=== PATIENT | male | born 1940 | race Hispanic/Latino ===

== ENCOUNTER 2017-07-15 11:50 | Day surgery (SDC) | payer MEDICARE ==
[2017-07-15] MEDS ORDERED: GARAMYCIN 80 MG in NACL 0.9% 100 ML IV SCH (12:30)
[2017-07-15] MEDS ORDERED: XYLOCAINE MPF 2% ONE (13:00)
[2017-07-15] MEDS ORDERED: GARAMYCIN/NS 80 MG/100 ML 100 ML IV NR (13:00)
[2017-07-15] MEDS ORDERED: NACL 0.9% 1000 ML 1,000 ML IV SCH (13:00)
[2017-07-15] MEDS ORDERED: NEO SYNEPHRINE/NS Syringe(OR USE) IV ONE (13:00)
[2017-07-15] MEDS ORDERED: CLEOCIN 600 MG/50 mL 600 MG/50 ML BAG IV NR (14:00)
[2017-07-15] MEDS ORDERED: TRIPLE ANTIBIOTIC TP ONE ×2 (14:23→15:58)
--- NOTE | 2017-07-15 14:53 | Anesthesia Consultation ---
Anesthesia Consult and Med Hx Date of service: 07/15/17 - Airway Anesthetic Teeth Evaluation: Poor (only 5-6 teeth in mouth) ROM Head & Neck: Inadequate Mental/Hyoid Distance: Adequate Mallampati Class: Class III Intubation Access Assessment: Difficult - Pulmonary Exam CTA: Yes - Cardiac Exam Cardiac Exam: RRR - Pre-Operative Health Status ASA Pre-Surgery Classification: ASA4 Proposed Anesthetic Plan: MAC - Pulmonary Hx Smoking: No SOB: Yes (with exacerbation of CHF) Hx Sleep Apnea: No - Cardiovascular System Hx Hypertension: Yes Hx Coronary Artery Disease: Yes (CHF) Hx Cardia Arrhythmia: Yes (Afib) - Central Nervous System Hx Neuromuscular Disorder: No Hx Psychiatric Problems: Yes (refuses to eat) - Gastrointestinal Hx Gastroesophageal Reflux Disease: Yes - Endocrine Hx Renal Disease: Yes (CKD) Hx Insulin Dependent Diabetes: Yes Hx Hypothyroidism: Yes - Hematic Hx Anemia: No Hx Sickle Cell Disease: No - Other Systems Hx Alcohol Use: No Hx Substance Use: No Hx Cancer: No Hx Obesity: No
--- NOTE | 2017-07-15 14:54 | Anesthesia Day of Surgery ---
Anesthesia Day of Surgery - Day of Surgery Patient Examined: Yes Patient H&P Reviewed: Yes Patient is NPO: Yes
[2017-07-15] MEDS ORDERED: VERSED ONE (15:31)
[2017-07-15] MEDS ORDERED: SUBLIMAZE ONE (15:31)
[2017-07-15] MEDS ORDERED: DIPRIVAN 10 MG/ML IV ONE ×2 (15:31→15:32)
--- NOTE | 2017-07-15 15:37 | Operative Report ---
Operative Report Operative Report: Operative Report: Date of procedure: 07/15/2017 Procedure: Esophagogastroduodenoscopy with percutaneous endoscopic gastrostomy tube placement Attending physician: Roberto Orellana MD Medical Radiation Tech: Roberto Orellana MD Indication: Patient is an 76-year-old male who presented with a history of dementia altered mental status poor oral intake and weight loss. Patient is moderately malnourished. An upper endoscopy is done to place a percutaneous endoscopic gastrostomy tube for enteral feeding and administration of medications. Consent: Informed consent was obtained after advising the patient and family regarding nature of this procedure, its indications, potential benefits as well as possible complications including but not limited to bleeding perforation and adverse reaction to medication, infection as well as other cardiopulmonary complications. An informed written and verbal consent was then obtained after due opportunity was provided for questions and answers. Monitoring: Patient was monitored continuously with pulse oximetry and electrocardiographic recordings as well as blood pressure recordings. Vital signs remained stable throughout this procedure with no untoward events. Preoperative assessment: Patient was assessed immediately prior to this procedure for capacity to tolerate monitored anesthesia care and moderate sedation as well as general anesthesia. Patient's ASA classification is 3, Mallampati class is 2, Hyomental distance is 3. Instrument: Neovasc video endoscope. 20 Brazilian percutaneous endoscopic gastrostomy tube kit Medications: Propofol given intravenously in divided doses. For details please refer to anesthesia records. Clindamycin 600 mg and Gentamycin 80 mg given intravenously immediately prior to beginning of procedure 1% lidocaine for local infiltration of the skin. Description of procedure: Patient was placed in a supine position after achieving sedation, the endoscope was introduced into the esophagus under direct vision. It was then advanced beyond the esophagus into the stomach and then beyond the stomach into the duodenum and to the second portion of the duodenum. It was subsequently withdrawn with careful inspection of all mucosal surfaces with the following findings. Subsequently, a precise location for the placement of the percutaneous endoscopic gastrostomy tube was identified using direct light transillumination and one-to-one finger indentation. Following this, a 20 Brazilian percutaneous endoscopic gastrostomy tube was successfully placed using the Ponsky pull-through method. The following endoscopic findings were noted. Findings: Esophagus was normal. There was retained fluid in the gastric fundus and cardia which was suctioned off . A 20 Brazilian percutaneous endoscopic gastrostomy tube was successfully placed. The duodenum was normal to the second portion. Impression: Esophagogastroduodenoscopy with successful placement of a 20 Brazilian percutaneous endoscopic gastrostomy tube. Plan: The tube site is currently at 3.2cm. It should be cleaned daily with Betadine and peroxide. Triple Antibiotic should be applied daily to the site with dry gauze dressing a for at least 2-3 weeks. The tube site should be carefully inspected daily for any redness or discharge. The tube should be flushed with 100 mL of water every 6 hours. The tube should also be flushed additionally after administration medications or after completing a feeding session. Tube may be used for enteral feeding after 6 hours. The tube however may be used immediately for administration of medications. If the tube is accidentally dislodged, a bedspread folder should be notified immediately. After 6 hours, the tube may be used for enteral feeding. The advice however and recommendation is to begin tube feeding at a slow rate of 30 mL per hour and gradually increase as may be instructed after 8 hours. Residuals from the feeding tube should be checked every 3 hours for at least 24-36 hours. If patient tolerates feeding, his feeding volume should be optimized as may advised by the dietitian. If patient has high residuals, then caution should be used in increasing the feeding rate to avoid aspiration. The head of the bed should be kept at 30 always.
--- NOTE | 2017-07-15 16:21 | Discharge Summary ---
Short Stay Discharge Plan Activity: advance as tolerated Weight Bearing Status: Weight Bear as Tolerated Diet: regular
[2017-07-15 16:35] VITALS: BP 98/55
--- NOTE | 2017-07-15 19:18 | Post Anesthesia Evaluation ---
- Post Anesthesia Evaluation Patient Participated: Yes Airway Patent: Yes Stable Respiratory Function: Yes Nausea/Vomiting: No Temp > 96.8F: Yes Pain Manageable: Yes Adequeate Hydration: Yes Anesthesia Complications: No Block Receding Appropriately: Not Applicable Patient on Ventilator: No
== END 2017-07-15 11:51 | disposition home or self-care (01) ==
LOC: GIO 11:50
PROVIDERS: ATTEND Internal Medicine Gastroenterology
DX: K21.9 Gastro-esophageal reflux disease without esophagitis (principal); R63.4 Abnormal weight loss; E11.22 Type 2 diabetes mellitus with diabetic chronic kidney disease; E03.9 Hypothyroidism, unspecified; E78.5 Hyperlipidemia, unspecified; N18.9 Chronic kidney disease, unspecified; I13.0 Hypertensive heart and chronic kidney disease with heart failure and stage 1 through stage 4 chronic kidney disease, or unspecified chronic kidney disease; I48.91 Unspecified atrial fibrillation; Z88.0 Allergy status to penicillin; Z88.8 Allergy status to other drugs, medicaments and biological substances
CPT/HCPCS: 43246; 82962; J1580; J2370; J2704; J3010; J7030; A6250; J2250